=== PATIENT | female | born 1955 | race Caucasian/White ===

== ENCOUNTER → 2016-05-24 | Outpatient (CLI) | payer BC ==
[~2016-05-24] MED LIST: Amaryl PO; CALCIO DEL MAR500 MG PO; CELEBREX200 MG PO; CRESTOR10 MG PO; Ecotrin PO; Feosol PO; Glucophage PO; Senokot S,Pericolace PO; VITAMIN D1000 INTUN PO; Vicodin,Norco 5/325 PO; Victoza SC; Zestril,Prinivil PO
== END | disposition home or self-care (01) ==
DX: M17.12 Unilateral primary osteoarthritis, left knee (principal); M25.562 Pain in left knee; M25.662 Stiffness of left knee, not elsewhere classified; R26.2 Difficulty in walking, not elsewhere classified; M62.89 Other specified disorders of muscle
CPT/HCPCS: 97110 GP; 97150 GO; 97161 GP; 97165 GO

== ENCOUNTER 2016-07-04 05:35 | Inpatient (IN) | payer BC ==
[~2016-07-04] VITALS: Ht 162.6 cm; Wt 122.0 kg
[~2016-07-04 05:35] MED LIST changes: +ACTOS15 MG PO; +AMARYL4 MG PO; +FLONASE16 G1 BOTH NARES; +GLUCOPHAGE1000 MG PO; +IRON325 M1 PO; +LO-DOSE ASPIRIN81 M1 PO; +PRINIVIL10 MG PO; +VICTOZA 2-0.6 MG/0.1 SC; +VICTOZA0.6 MG/0.1 SC
[2016-07-04 06:20] VITALS: BP 134/82
[2016-07-04 06:25] LABS: POINT-OF-CARE METER ID UU14174212
[2016-07-04 09:53] LABS: POINT-OF-CARE METER ID UU13113675
[2016-07-04 10:35] LABS: POINT-OF-CARE METER ID UU13113675
[2016-07-04 11:19] LABS: HEMATOCRIT 32.4 % (36.0-46.0); MCH 29.2 PG (29.0-34.0); MCHC 31.2 G/DL (30.0-36.0); MCV 93.6 FL (83-99); PLATELET COUNT 213 K/uL (156-360); RBC DIS.WIDTH-CV 13.9 % (11.8-14.6); RBC DIS.WIDTH-SD 46.9 % (39-53); RED BLOOD COUNT 3.46 M/uL (3.80-5.20); WHITE BLOOD COUNT 8.1 K/uL (4.1-10.2)
[2016-07-04 11:30] VITALS: BP 98/56
[2016-07-04 11:51] LABS: POINT-OF-CARE METER ID UU13113712
[2016-07-04 12:35] VITALS: BP 89/52
[2016-07-04 13:23] VITALS: BP 92/51
[2016-07-04 16:02] LABS: POINT-OF-CARE METER ID UU13113712
[2016-07-05 00:10] VITALS: BP 125/60
[2016-07-05 04:00] VITALS: BP 101/49
[2016-07-05 07:40] VITALS: BP 135/62
[2016-07-05 08:00] LABS: POINT-OF-CARE METER ID UU13113712
[2016-07-05 09:07] LABS: HEMATOCRIT 28.6 % (36.0-46.0); MCV 91.1 FL (83-99)
[2016-07-05 09:35] LABS: ANION GAP 9 MEQ/L (2-14); CHLORIDE 104 MEQ/L (99-109); GFR ESTIMATE (CALCULATED) 54 mL/min/; GLUCOSE 207 mg/dL (70-99); POTASSIUM 4.2 MEQ/L (3.7-5.4); SAMPLE HEMOLYSIS CHECK 0; SAMPLE ICTERIC CHECK 0; SAMPLE LIPEMIA CHECK 0; SODIUM 133 MEQ/L (136-147); UREA NITROGEN (BUN) 22 mg/dL (9-23)
[2016-07-05 12:00] VITALS: BP 102/57
[2016-07-05 12:16] LABS: POINT-OF-CARE METER ID UU13113712
[2016-07-05 16:30] VITALS: BP 121/58
[2016-07-05 17:27] LABS: POINT-OF-CARE METER ID UU13113712
[2016-07-05 20:05] VITALS: BP 116/55
[2016-07-05 21:24] LABS: POINT-OF-CARE METER ID UU13113712
[2016-07-06 00:22] VITALS: BP 127/58
[2016-07-06 04:25] VITALS: BP 123/56
[2016-07-06 05:19] LABS: HEMATOCRIT 26.1 % (36.0-46.0)
[2016-07-06 07:45] LABS: POINT-OF-CARE METER ID UU13113712
[2016-07-06] MEDS ORDERED: SENNA PLUS TAB1 EACH PO (08:35)
[2016-07-06] MEDS ORDERED: HYDROCODON-ACE1 EAC7 PO (08:36)
[2016-07-06] MEDS ORDERED: LOVENOX40 MG/0.4 SC (08:36)
[2016-07-06 08:56] VITALS: BP 130/62
[2016-07-06 11:55] LABS: POINT-OF-CARE METER ID UU13113712
[2016-07-06 12:03] VITALS: BP 120/73
[2016-07-06 15:59] VITALS: BP 123/55
[2016-07-06 16:34] LABS: POINT-OF-CARE METER ID UU13113712
[2016-07-06 20:05] VITALS: BP 134/61
[2016-07-06 22:02] LABS: POINT-OF-CARE METER ID UU13113712
[2016-07-07 00:09] VITALS: BP 105/50
[2016-07-07 04:11] VITALS: BP 123/55
[2016-07-07 07:31] LABS: POINT-OF-CARE METER ID UU13113712
[2016-07-07 08:00] VITALS: BP 125/55
[2016-07-07 11:27] LABS: POINT-OF-CARE METER ID UU13113712
[2016-07-07 11:30] VITALS: BP 111/52
== END 2016-07-07 12:14 | DRG 470 ==
LOC: 2SOUTH 05:35 → 3WEST 05:35 → 2SOUTH 08:42 → 3WEST 11:15 → 2SOUTH 15:20 → 3WEST 07-07 12:14
PROVIDERS: Orthopaedic Surgery
PROC: 0SRD0J9 Replacement of Left Knee Joint with Synthetic Substitute, Cemented, Open Approach (ICD-10-PCS; principal; 2016-07-04)
DX: M17.12 Unilateral primary osteoarthritis, left knee (principal); Q21.0 Ventricular septal defect; I34.1 Nonrheumatic mitral (valve) prolapse; E11.9 Type 2 diabetes mellitus without complications; E78.5 Hyperlipidemia, unspecified; Z96.651 Presence of right artificial knee joint; Z86.14 Personal history of Methicillin resistant Staphylococcus aureus infection; Z79.82 Long term (current) use of aspirin; Z88.1 Allergy status to other antibiotic agents; Z88.5 Allergy status to narcotic agent
CPT/HCPCS: 73560; 80048; 82948; 85014; 85018; 85027; C1713; J0690; J1170; J1650; J1815; J2175; J2250; J2405; J3370; J7030; J7050